=== PATIENT | male | born 2005 | race Caucasian/White ===

== ENCOUNTER 2025-03-28 11:29 | Outpatient (REF) | payer OTHER, SELFPAY ==
--- OUTSIDE RECORDS SUMMARY | 2025-03-28 10:20 | XMS_ITS | Encounter Summary ---
Author Organization [employer] Address [address] [place] [address] Care Team Providers Care Engineering Technical Writer Name Role Phone Unavailable Primary Care Provider Unavailabl e Encounter Details Date Type Department Care Team (Late st Contact Info) Description 03/28/2025 10:20 AM EDT Office Visit [facility] [address] [place] [address] Penile discharge (Primary Dx); Elevated BP without diagnosis of hypertension Social History Tobacco Use Types Packs/Day Years Used Date Smoking Tobacco: Never Assessed Sex and Gender Information Value Date Recorded Sex Assigned at Male 03/27/2025 4:15 PM EDT Legal Sex Male 4:13 PM EDT Gender Identity Male 03/27/2025 4:15 PM EDT Sexual Orientation Straight 03/27/2025 4: 15 PM EDT documented as of this encounter Last Filed Vital Signs Vital Sign Reading Time Taken Comments Blood Pressure 160/100 03/28/2025 10:26 AM EDT Pulse 62 03/28/2025 10:26 AM EDT Temperature 36.6 C (97.8 F) 03/28/2025 10:26 AM EDT Respiratory Rate 16 03/28/2025 10:2 6 AM EDT Oxygen Saturation - - Inhaled Oxygen Concentration - - Weight 74.3 kg (163 lb 12.8 oz) 025 10:26 AM EDT Height - - Body Mass Index - - documented in this encounter Plan of Treatment Upcoming Encounters Date Type Department Care Team (Late Contact Info) Description 04/10/2025 10:00 AM EDT Office Visit [facility] MED[facility] [address] [place] [address] Shannon Montes FNP [address] [place] [address] Scheduled Orders Name Type Priority Associated Diagnoses Orde r Schedule Lipid Panel, Standard Lab Routine Penile discharge Expected: 03/28/2025 (Approximate), Expires: 03/28/2026 HIV-1/2 Antigen and Antibodies, Fourth Generation, with Reflexes Lab Routine Penile discharge Expected: 03/28/2025 (Approximate), Expires: 03/28/2026 Hepatitis B surface antigen, EIA Lab Routine Penile discharge Expected: 03/28/2025 (Approximate), Expires: 03/28/2026 Hepatitis C Antibody with Reflex to HCV, RNA, Quantitative, Real-Time PCR Lab Routine Penile discharge Expected: 03/28/2025, Expires: 03/28/2026 RPR (Monitor) with Reflex to Titer Lab Routine Penile discharge Expected: 03/28/2025, Expires: 03/28/2026 Chlamydia/N. Gonorrhoeae RNA, TMA, Urogenitial Microbiology Routine Penile discharge Ordered: 03/28/2025 Chlamydia/N. Gonorrhoeae, PCR, Urine Lab Routine Penile discharge Ordered: 03/28/2025 documented as of this encounter Procedures Procedure Name Priority Date/Time Associated Diagnosis Comments POCT URINALYSIS DIPSTICK Routine 03/28/2025 11:07 AM EDT Penile discharge documented in this encounter Results * POCT Urinalysis (03/28/2025 11:07 AM EDT) Color, UA Yellow Clarity, UA Cloudy Glucose, UA Negative Bilirubin, UA Negative Ketones, UA Negative Spec Grav, UA 1.020 Blood, UA Negative Negative, None Detected pH, UA 6.0 Protein, UA Negative Urobilinogen, UA 0.2 Leukocytes, UA Trace Negative, Rare, Trace Comment:small Nitrite, UA Negative Negative, None Detected Appearance, UA cloudy QC Media Lot # [id number] Lot# Expiration Date Urine 03/28/2025 11:0 7 AM EDT Preston Newman MD POINT OF CARE TEST ENTER/EDIT O RDERABLES Final Result documented in this encounter Visit Diagnoses Diagnosis Penile discharge- Primary Urethral discharge Elevated BP without diagnosis of hypertension documented in this encounter Administered Medications Inactive Administered Medications - up to 3 most recent administrations Medication Order MAR Action Action Date Dose Rate Site cefTRIAXone (Rocephin) vial 500 mg 500 mg, Intramuscular, Once, On Carlie 03/28/25 at 1115, For 1 dose, Suspected Indication (Select all that apply): Sexually Transmitted Infection, Type of Therapy: EmpiricIndications:Penil e discharge Given 03/28/2025 11:15 AM EDT 500 mg Left Ventrogluteal documented in this encounter
--- OUTSIDE RECORDS SUMMARY | 2025-03-28 12:11 | XMS_ITS | Clinical Summary ---
Author Organization [facility] Address [address] [place] [address] Phone Care Team Providers Care Qualitative Executive Researcher Name Role Phone Unavailable Primary Care Provider Unavailabl e Immunizations Immunization Administration Dates Next Due DTaP 5 08/21/2008, 5,09/17/2004,2003,05/11/2004 H1N1 09/30/2009 Hep B, ped/adol 08/10/2004,05/11/2004,2003 Hib (PRP-T) 03/02/2005, 4,08/10/2004,2003 IPV 08/21/2008, 5,08/10/2004,2003 Influenza Split 07/25/2012,11/27/2010 Influenza, injectable, quadr ivalent, preservative free 07/03/2013 Influenza, injectable, trivalent 010,09/26/2008,08/21/2008,2006 MMR 08/21/2008,03/02/2005 Pneumococcal Conjugate 03/02/2005,2003,08/10/2004,2003 Varicella 08/21/2008,06/22/2005 Family History Relation Name Status Comments Father Alive Father: Diabete s mellitus, Asthma Mother Alive Mother: Migrain es Sister 1 Alive Sister: Alive a nd well, Alive and well Sister 2 Alive Sister: Alive a nd well, Alive and well Social History Tobacco Use Types Packs/Day Years Used Date Smoking Tobacco: Never Assessed Sex and Gender Information Value Date Recorded Sex Assigned at Not on file Legal Sex Male 4:44 PM EDT Gender Identity Not on file Sexual Orientation Not on file Last Filed Vital Signs Vital Sign Reading Time Taken Comments Blood Pressure 98/64 2012 12:00 AM EDT Pulse 92 11/30/2011 12:00 AM EDT Temperature 36.7 C (98 F) 07/03/2013 12:00 AM EDT Respiratory Rate - - Oxygen Saturation - - Inhaled Oxygen Concentration - - Weight 37.2 kg (82 lb) 07/03/2013 12:00 AM EDT Height 128.3 cm (4' 2.5 ) 2012 12:00 AM ED T Body Mass Index - - Plan of Treatment Health Maintenance Due Date Last Done Comments DTaP,Tdap,and Td Vaccines (6 - Tdap) 12/18/2014 08/21/2008, 06/22/2005, 09/17/2004, Additional history exists HPV Vaccines (1 - Male 3-dose series) 12/18/2018 Men B Vaccine (1 of 2 - Standard) 2019 COVID-19 Vaccine ( - season) 2024 Influenza Vaccines (#1) 2025 07/03/20 13, 07/25/2012, 11/27/2010, Additional history exists Hepatitis B Vaccines Completed 08/10/2004, 05/11/2004, 2003 HIB Vaccines Completed 03/02/2005, 08/21, 08/10/2004, Additional history exists Pneumococcal Vaccine Completed 03/02/2005, 09/17/2004, 08/10/2004, Additional history exists IPV Vaccines Completed 08/21/2008, 12/2004, 08/10/2004, Additional history exists MMR Vaccines Completed 08/21/2008, 03/02/2005 Varicella Vaccines Completed 08/21/2008, 06/22/2005 Hepatitis A Vaccines Aged Out No long er eligible based on patient's age to complete this topic Meningococcal Vaccine Aged Out No adwoa yue eligible based on patient's age to complete this topic
--- OUTSIDE RECORDS SUMMARY | 2025-03-28 12:11 | XMS_ITS | Clinical Summary ---
Author Organization [facility] Address [address] [place] [address] Care Team Providers Care Programs Assistant Name Role Phone Mimi Rodriguez MD Primary Care Provider Source Comments PLEASE NOTE, if this patient is a minor, it may be UNLAWFUL to discuss sensitive information that is contained in these records (such as FAMILY PLANNING, MENTAL HEALTH or SUBSTANCE ABUSE) with the minor patient's parent or other person without the patient's specific authorization.[facility] Allergies No known active allergies Medications No known medications Active Problems No known active problems Resolved Problems Problem Noted Date Diagnosed Date Resolved Date Enuresis 10/28/2014 10/07/2018 Immunizations Immunization Administration Dates Next Due DTAP (DAPTACEL),5 PERTUSSIS ANTIGENS 11/2007,06/22/2005,09/17/2004,08/10,05/11/2004 Flu, Preservative Free 07/21/2020,2018,08/08/2018,07/03 HEP B, PED/ADOL ([id number]-MJTK/RECOMBIVAX-PEDS) 08/10/2004,05/11/2004,2003 HPV 9 (Gardasil) 06/15/2019,03/24/2018 Hep A, Ped/adol, 2 Dose 06/15/2019,03/24/2018 Hib (PRP-T) 03/02/2005, 4,08/10/2004,05/11 INFLUENZA, SEASONAL, INJECTABLE 09/30/19 10,09/26/2008,08/21/2008,06/22 IPV (IPOL) 08/21/2008, 5,08/10/2004,05/11 MENINGOCOCCAL MCV4P (MENACTRA) 07/21/2020,2017 MMR (MMR II/Priorix) 08/21/2008,03/02/2005 PNEUMOCOCCAL CONJUGATE PCV 7 03/02/2005, 09/17/2004,08/10/2004,05/11 [facility] Flu Vaccine 07/25/2012, 011 TDAP 03/24/2018 Varicella (Varivax), Live Vaccine 08/21/2008,12/2004 Social History Tobacco Use Types Packs/Day Years Used Date Smoking Tobacco: Never Smokeless Tobacco: Never Alcohol Use Standard Drinks/Week Comments No 0 (1 standard drink = 0.6 oz pur e alcohol) Social Connections Answer Date Recorded Social Connections and Isolation 0 05/13/2019 Financial Resource Strain Answer Date R ecorded Financial Resource Strain 0 2018 Stress Answer Date Recorded Stress 0 05/13/2019 Physical Activity Answer Date Recorded Physical Activity 0 05/13/2019 Food Insecurity Answer Date Recorded Food 0 05/13/2019 Transportation Needs Answer Date Record ed Transportation 0 05/13/2019 Housing Stability Answer Date Recorded Housing 0 05/13/2019 Safety and Environment Answer Date Elias rded Safety 0 05/13/2019 Utilities Answer Date Recorded Utilities 0 05/13/2019 Employment Answer Date Recorded Employment 0 05/13/2019 Sex and Gender Information Value Date Recorded Sex Assigned at Male 03/24/2018 6:49 AM PDT Legal Sex Male 11:05 AM PST Gender Identity Male 03/24/2018 6:49 AM PDT Sexual Orientation Not on file Last Filed Vital Signs Vital Sign Reading Time Taken Comments Blood Pressure 116/70 07/21/2020 11:29 AM EST Pulse 76 07/21/2020 11:29 AM EST Temperature 37 C (98.6 F) 07/21/2020 11:29 AM EST Respiratory Rate 16 07/21/2020 11:29 AM EST Oxygen Saturation - - Inhaled Oxygen Concentration - - Weight 73 kg (161 lb) 07/21/2020 11:29 AM EST Height 163.8 cm (5' 4.5 ) 07/21/2020 11:29 AM ES T Body Mass Index 27.21 07/21/2020 11:29 AM EST Plan of Treatment Not on file Insurance [employer] Care Teams Programs Assistant Relationship Specialty Start Date End Date Mimi Rodriguez MD [address] [place] [phone] PCP - General Pediatrics 10/25/14
[2025-03-28 14:43] LABS: Cholesterol 188 mg/dL (<200); HDL Cholesterol 62 mg/dL (>40); Triglycerides 87 mg/dL (<150)
[2025-03-28 15:48] LABS: CT PCR Urine NOT DETECTED (Not Detect.); NG PCR Urine DETECTED (Not Detect.)
[2025-03-29 08:30] LABS: HBsAGNum1 0.30 S/CO (0.00-0.99); HIV Num 1 0.15 S/CO (0.00-0.99); Hepatitis B Surface Antigen Negative (Negative); ~HepC Num1 0.21 S/CO (0.00-0.79); ~Hepatitis C Antibody Nonreactive (Nonreactive)
== END 2025-03-28 11:30 | disposition home or self-care (01) ==
LOC: HO.HHCL 11:29
PROVIDERS: PCP Pediatrics; Visit Provider Pediatrics
DX: R36.9 Urethral discharge, unspecified (principal)
CPT/HCPCS: 36415; 80061; 86592; 86803; 87340; 87389; 87491; 87591

== ENCOUNTER 2025-06-23 22:56 | Emergency (ER) | payer MEDICAID, SELFPAY ==
--- NOTE | ~2025-06-23 | CT_ITS ---
CLINICAL HISTORY: fall down stairs ?jaw dislocation CT maxillofacial without contrast Comparison: None provided. Findings: Angulated fracture present at the left mandibular ramus, visualized on coronal image number 137 of series 24. There is associated dislocation of the left temporomandibular joint. The right temporomandibular joint appears intact. A fracture is identified through the right mandibular body extending toward the roots of the right mandibular canine and 1st premolar. This fracture appears minimally displaced. There is mild adjacent posttraumatic soft tissue gas. Temporomandibular joints intact. The bilateral globes appear intact. No retrobulbar hematoma. Trace mucosal thickening present at the right anterior ethmoid air cells and bilateral maxillary sinuses. The bilateral mastoid air cells appear clear. Impression: 1. Fractures of the right mandibular body and left mandibular ramus present as described above, with an associated dislocation injury involving the left temporomandibular joint. This document has been electronically signed by: Fernando Romero MD on 06/24/2025 02:07:25
--- NOTE | ~2025-06-23 | CT_ITS ---
CLINICAL HISTORY: fall down stairs CT chest with contrast Comparison: CT - CT CHEST W IV CON - 06/24/25 00:37 EDT Findings: Normal heart,size. No significant pericardial effusion. No thoracic aorta aneurysm. No focal pulmonary consolidation, pneumothorax, or pleural effusion. No acute fractures. Impression: 1. No acute traumatic injury of the chest identified. This document has been electronically signed by: Fernando Romero MD on 06/24/2025 01:55:58
--- NOTE | ~2025-06-23 | CT_ITS ---
CLINICAL HISTORY: fall down stairs CT abdomen and pelvis with contrast Comparison: None provided. Findings: The gallbladder and solid organs are within normal limits. No hydronephrosis or hydroureter. No bowel obstruction, pneumoperitoneum, or pneumatosis. Pelvic contents unremarkable. The bladder is underdistended, limiting its evaluation. Normal appendix. No acute fracture or dislocation injuries are visualized. IMPRESSION: 1. No acute traumatic injury of the abdomen or pelvis identified. This document has been electronically signed by: Fernando Romero MD on 06/24/2025 02:01:57
--- NOTE | ~2025-06-23 | CT_ITS ---
CLINICAL HISTORY: fall down stairs head strike CT head without contrast Comparison: None provided. Findings: No intracranial mass, midline shift, hydrocephalus, or acute hemorrhage. Trace mucosal thickening identified within the right anterior ethmoid air cells. The bilateral mastoid air cells appear clear. No acute skull fracture. Left mandibular ramus fracture present. Impression: 1. No acute intracranial abnormality. No acute intracranial hemorrhage. This document has been electronically signed by: Fernando Romero MD on 06/24/2025 02:10:50
--- NOTE | ~2025-06-23 | CT_ITS ---
CLINICAL HISTORY: fall down stairs CT cervical spine without contrast Comparison: None provided. Findings: Angulated fracture of the left mandibular ramus present. There is straightening of the normal cervical lordosis. No cervical spondylolisthesis. No acute fractures or dislocations are identified at the cervical spine. No significant degenerative endplate changes at the cervical spine. Impression: 1. Straightening of the normal cervical lordosis. This finding is nonspecific and may be positional and/or related to muscle spasm. No acute fracture or dislocation injury identified at the cervical spine. This document has been electronically signed by: Fernando Romero MD on 06/24/2025 02:09:08
[2025-06-23 23:09] VITALS: BP 157/93; PULSE 87; RESP 18; TEMP 36.6; O2SAT 97; BMI 27.5
--- NOTE | 2025-06-23 23:30 | ED_ITS ---
HPI - Trauma General Chief Complaint: Trauma Stated Complaint: Fell downstairs, teeth injury Time Seen by Provider: 06/23/25 23:15 Source: patient Mode of arrival: ambulatory Limitations: no limitations History of Present Illness ED Provider: CATALINA LUCIANO PA-C HPI narrative: 19-year-old male presents to the ED today s/p fall down a flight of wooden stairs [employer] in ED tonight. Admits he is intoxicated, lost his balance while descending the stairs and fell down approximately 15 stairs total, head first with impact to chin/ jaw. Unclear if he lost consciousness. Denies anticoagulation. At present, reports jaw pain primarily to left side. Noted to have multiple chipped teeth. Unaware if he swallowed them. Admits to driving himself to the ED today. Denies headache, neck pain, dizziness, vision changes. History somewhat limited due to patient's acute intoxication. Related Data Allergies Allergy/AdvReac Type Severity Reaction Status Date / Time No Known Allergies Allergy Unverified 06/23/25 23:25 Review of Systems 2 Review of Systems: Yes all other systems are reviewed and are negative PMFSH Past Medical History Attestation statement: The following information was validated with the patient. Source: old records reviewed and nursing notes reviewed Social History Social History Alcohol intake: current Smoked in Last 30 Days: No Use of substances other than those prescribed or required for medical reasons: Yes Substance Use Type: Marijuana Advance Directives: No Advance Directives Information Provided: No Physical Exam 2 Vital Signs: Vital Signs: Last Vital Signs Temp 97.9 F 06/23/25 23:09 Pulse 80 06/24/25 01:23 Resp 20 06/24/25 01:23 BP 138/80 06/24/25 01:23 Pulse Ox 98 06/24/25 01:23 O2 Del Method Room Air 06/24/25 01:23 BMI result Body Mass Index 27.5 hypertensive, vitals are otherwise wnl General: Well appearing, in no acute distress. Skin: Warm, dry, intact. No rashes or lesions. Head: swelling noted to mandible, left greater than right, difficulty opening mouth, palpable step off at right tmj. chipped upper frontal teeth. no palpable skull fracture, step off or hematoma. EENT: no septal hematoma. Neck: no midline c spine tenderness, FROM intact Cardiac: no overlying ecchymosis or abrasions, symmetric rise and fall of chest, no flail chest, RRR Lungs: Normal respiratory effort without accessory muscle use. CTA bilaterally Abdomen: no overlying ecchymosis or abrasion. Soft, non-tender, non-distended. No rebound tenderness or guarding. Positive BS x4. Back: No midline spinous or paraspinal tenderness. No step off deformity. Ext: abrasions to bilateral anterior knees, FROM intact Neuro: AOx3. Normal speech. Strength 5/5 intact throughout. No saddle anesthesia. Sensation intact to light touch. NV intact distally Psych: Appropriate mood and affect. Responds appropriately to questions. Course Course Course Narrative: 0039 -- Concern for jaw dislocation. Given patient is acutely intoxicated and history is limited, will trauma scan him. screening labs/ethanol ordered. morphine ordered for pain control. > my attending dr. radford at bedside, agreeable with plan 214 -- CBC without leukocytosis or left shift. No anemia. H&H stable. > CT facial bones showing angulated fracture of the left mandibular ramus, associated dislocation of the left TMJ. Right TMJ intact. There is also a fracture through the right mandibular body extending towards the roots of the right mandibular canine and 1st premolar, minimally displaced. Mild adjacent posttraumatic soft tissue gas. the rest of his trauma scans are unremarkable. > call out to [facility] trauma 6 -- spoke with [facility] trauma dr. porter - accepted ED to ED transfer for trauma consult. discussed w/ patient and his mother who are at bedside, agreeable with transfer. stable at this time. Medications Administered Discontinued Medications Generic Name Dose Route Start Last Admin Trade Name Freq PRN Reason Stop Dose Admin Hydromorphone HCl 1 mg 06/24/25 01:06 06/24/25 01:16 Hydromorphone Hcl 1 Mg/Ml Syringe IVPUSH 06/24/25 01:07 1 mg ONCE ONE Administration Protocol Iohexol 85 ml 06/24/25 00:56 06/24/25 01:11 Iohexol 350 Mg/Ml 100 Ml Infus..Btl IV 06/24/25 00:57 85 ml ONCE ONE Administration Lidocaine HCl 10 ml 06/23/25 23:24 06/24/25 01:35 Lidocaine Hcl 1 % Mpf 5 Ml Vial INFILTRATI 10/05/25 23:25 Not Given ONCE ONE Morphine Sulfate 4 mg 06/23/25 23:22 06/23/25 23:33 Morphine Sulfate 4 Mg/Ml Cartridge IVPUSH 06/23/25 23:23 4 mg ONCE ONE Administration Protocol Medical Decision Making Differential Diagnosis Differential Diagnoses: The differential diagnosis associated with the presentation includes As above Admission/Observation Consideration of admission/observation: Escalation of care including admission/observation considered transferred to acute care hospital for management of traumatic facial fractures Consult Healthcare Provider Management of the patient was discussed with: Instructor Traffic [employer] [facility] trauma - dr. porter Lab Data [facility] Lab Attestation statement: I reviewed the patient's lab results. As above 06/23/25 23:30 06/23/25 23:30 Labs: Lab Results 06/23/25 06/24/25 Range/Units 23:30 00:36 WBC 8.1 (4.8-10.8) X10*3/uL RBC 5.31 (4.60-5.80) X10*6/uL Hgb 16.4 (14.0-18.0) g/dl Hct 46.1 (42.0-52.0) % MCV 86.8 (80.0-98.0) fL MCH 30.9 (27.0-33.0) pg MCHC 35.6 (31.0-36.0) g/dl RDW 12.2 (11.0-16.0) % Plt Count 282 (160-400) X10*3/uL MPV 10.2 (9.4-12.4) fL Immature Gran % (Auto) 0.2 (0.0-0.4) % Neut % (Auto) 51.9 (45-73) % Lymph % (Auto) 43.6 H (20-40) % [place] % (Auto) 3.3 (2-11) % Eos % (Auto) 0.6 (0-4) % Baso % (Auto) 0.4 (0-2) % Lymph # (Auto) 3.5 (1.2-4.9) X10*3/uL [place] # (Auto) 0.3 (0.1-1.2) X10*3/uL Eos # (Auto) 0.1 (0.0-0.4) X10*3/uL Baso # (Auto) 0.0 (0.0-0.2) X10*3/uL Abs Immat Gran (auto) 0.02 (0.00-0.03) X10*3/uL Absolute Neuts (auto) 4.2 (2.0-8.3) x10*3/uL Absolute Nucleated RBC 0.000 (0.0-0.012) X10*3/uL Nucleated RBC % (auto) 0.0 (0.0-0.2) /100WBC Sodium 146 H (135-145) mmol/L Potassium 3.6 (3.3-5.1) mmol/L Chloride 107 (96-108) mmol/L Carbon Dioxide 29 (22-29) mmol/L Anion Gap 14 (12-20) BUN 8 L (9-16) mg/dL Creatinine 1.02 (0.5-1.4) mg/dL Estim Creat Clear Calc 104.6 Estimated GFR > 60 Random Glucose 111 (60-115) mg/dL Calcium 9.6 (8.4-10.2) mg/dL Magnesium 2.2 (1.6-2.6) mg/dL Total Bilirubin 0.3 (0.0-1.0) mg/dL AST 30 (5-37) U/L ALT 24 (0-40) U/L Alkaline Phosphatase 67 (39-117) U/L Total Protein 8.4 H (6.5-8.0) g/dL Albumin 5.4 H (3.5-5.0) g/dL Urine Color Yellow Urine Appearance Clear Urine pH 6.0 (5.0-9.0) Ur Specific [place] 1.010 (1.005-1.025) Urine Protein Negative (Neg-Trace) mg/dL Urine Glucose (UA) Negative (Negative) mg/dL Urine Ketones Negative (Negative) mg/dL Urine Blood Trace H (Negative) Urine Nitrite Negative (Negative) Ur Leukocyte Esterase Negative (Negative) Urine RBC 0-2 (0-2) /HPF Urine WBC 0-5 (0-5) /HPF Ur Squamous Epith Cells 0-2 (0-2) /HPF Urine Bacteria None Seen (None Seen) Hyaline Casts 0-2 (0-2) /LPF Urine Opiates Screen POSITIVE H (Not Detect) Ur Buprenorphine Scrn Not Detected (Not Detect) ng/mL Ur Oxycodone Screen Not Detected (Not Detect) ng/mL Urine Methadone Screen Not Detected (Not Detect) ng/mL Urine Fentanyl Screen Not Detected (Not Detect) Ur Barbiturates Screen Not Detected (Not Detect) Ur Phencyclidine Scrn Not Detected (Not Detect) Ur Amphetamines Screen Not Detected (Not Detect) U Benzodiazepines Scrn Not Detected (Not Detect) Urine Cocaine Screen Not Detected (Not Detect) U Marijuana (THC) Screen POSITIVE H (Not Detect) Ethyl Alcohol 220 mg/dL Independent Interpretation I performed an independent interpretation of an: CT Scan Interpretation: CT head/brain without bleed or skull fracture CT cervical spine without fracture CT facial bones showing bilateral mandibular fractures CT chest without intrathoracic bleed CT abdomen/pelvis without intra-abdominal bleed Radiology Impression Discussion of test interpretation with radiology: I have reviewed the radiologist's reading. Radiologist Impression: Date of Service: 06/24/25 Procedure(s): CT head/brain wo IV con Accession Number(s): [id number] cc: [facility]; Catalina Luciano~ Report Number: [id number]: Total DLP = 1395.55 mGy-cm Reason for Exam: fall down stairs head strike CLINICAL HISTORY: fall down stairs head strike CT head without contrast Comparison: None provided. Findings: No intracranial mass, midline shift, hydrocephalus, or acute hemorrhage. Trace mucosal thickening identified within the right anterior ethmoid air cells. The bilateral mastoid air cells appear clear. No acute skull fracture. Left mandibular ramus fracture present. Impression: 1. No acute intracranial abnormality. No acute intracranial hemorrhage. This document has been electronically signed by: Fernando Romero MD on 06/24/2025 02:10:50 Date of Service: 06/24/25 Procedure(s): CT cervical spine wo IV con Accession Number(s): [id number] cc: [facility]; Catalina Luciano~ Report Number: [id number]: Total DLP = 353.44 mGy-cm Reason for Exam: fall down stairs CLINICAL HISTORY: fall down stairs CT cervical spine without contrast Comparison: None provided. Findings: Angulated fracture of the left mandibular ramus present. There is straightening of the normal cervical lordosis. No cervical spondylolisthesis. No acute fractures or dislocations are identified at the cervical spine. No significant degenerative endplate changes at the cervical spine. Impression: 1. Straightening of the normal cervical lordosis. This finding is nonspecific and may be positional and/or related to muscle spasm. No acute fracture or dislocation injury identified at the cervical spine. This document has been electronically signed by: Fernando Romero MD on 06/24/2025 02:09:08 Procedure(s): CT facial bones wo IV con Accession Number(s): [id number] cc: [facility]; Catalina Luciano~ Report Number: [id number]: Total DLP = 571.66 mGy-cm Reason for Exam: fall down stairs ?jaw dislocation CLINICAL HISTORY: fall down stairs ?jaw dislocation CT maxillofacial without contrast Comparison: None provided. Findings: Angulated fracture present at the left mandibular ramus, visualized on coronal image number 137 of series 24. There is associated dislocation of the left temporomandibular joint. The right temporomandibular joint appears intact. A fracture is identified through the right mandibular body extending toward the roots of the right mandibular canine and 1st premolar. This fracture appears minimally displaced. There is mild adjacent posttraumatic soft tissue gas. Temporomandibular joints intact. The bilateral globes appear intact. No retrobulbar hematoma. Trace mucosal thickening present at the right anterior ethmoid air cells and bilateral maxillary sinuses. The bilateral mastoid air cells appear clear. Impression: 1. Fractures of the right mandibular body and left mandibular ramus present as described above, with an associated dislocation injury involving the left temporomandibular joint. This document has been electronically signed by: Fernando Romero MD on 06/24/2025 02:07:25 Procedure(s): CT abdomen pelvis w IV con Accession Number(s): [id number] cc: [facility]; Catalina Luciano~ Report Number: [id number]: Total DLP = 731.49 mGy-cm Reason for Exam: fall down stairs CLINICAL HISTORY: fall down stairs CT abdomen and pelvis with contrast Comparison: None provided. Findings: The gallbladder and solid organs are within normal limits. No hydronephrosis or hydroureter. No bowel obstruction, pneumoperitoneum, or pneumatosis. Pelvic contents unremarkable. The bladder is underdistended, limiting its evaluation. Normal appendix. No acute fracture or dislocation injuries are visualized. IMPRESSION: 1. No acute traumatic injury of the abdomen or pelvis identified. This document has been electronically signed by: Fernando Romero MD on 06/24/2025 02:01:57 Procedure(s): CT chest w IV con Accession Number(s): [id number] cc: [facility]; Catalina Luciano~ Report Number: [id number]: Total DLP = 389.77 mGy-cm Reason for Exam: fall down stairs CLINICAL HISTORY: fall down stairs CT chest with contrast Comparison: CT - CT CHEST W IV CON - 06/24/25 00:37 EDT Findings: Normal heart,size. No significant pericardial effusion. No thoracic aorta aneurysm. No focal pulmonary consolidation, pneumothorax, or pleural effusion. No acute fractures. Impression: 1. No acute traumatic injury of the chest identified. This document has been electronically signed by: Fernando Romero MD on 06/24/2025 01:55:58 Independent Historian Clinical information obtained from an independent historian. History obtained from or confirmed by: Parent Prescription Management I considered prescription management with: Pain Medication Social Determinants Patient?s care significantly limited by Social Determinants of Health including: Other Social Determinant of Health Attestation Attending Attestation: I personally evaluated this patient with the HERBIE and performed a substantive portion of the visit including all aspects of the medical decision making. ?Reviewed and agree with documented PA assessment and plan. Patient will be transferred to [facility] for trauma evaluation after a fall down stairs with multiple facial fractures, accepted by Dr. Porter.? Patient remains hemodynamically stable, resting and comfortable at this time. Critical Care Time Critical Care Time Critical Care Time: Yes Total Critical Care Time: 35 Attestation: Critical care time in the amount of 35 minutes has been provided to the patient in terms of direct patient care, frequent reevaluation, consultation with trauma, review and interpretation of medical data and results, and management of potentially life-threatening conditions. This is all outside of any medical procedures. Discharge Plan Discharge Clinical Impression: Fracture of right ramus of mandible, Fracture of left ramus of mandible, Dislocation of left temporomandibular joint, Fall (on) (from) other stairs and steps, initial encounter, Chin laceration Patient Disposition: [facility] Transfer Details: [facility] ED to ED - trauma dr. porter Print Language: Lithuanian
[2025-06-23 23:35] LABS: Hematocrit 46.1 % (42.0-52.0); Hemoglobin 16.4 g/dl (14.0-18.0); Imm Gran Abs Auto 0.02 X10*3/uL (0.00-0.03); Imm Gran Pct Auto 0.2 % (0.0-0.4); Lymphocytes Absolute Auto 3.5 X10*3/uL (1.2-4.9); MANUAL DIFF FLAG NO; Mean Corpuscular HGB Conc 35.6 g/dl (31.0-36.0); Mean Corpuscular Hemoglobin 30.9 pg (27.0-33.0); Mean Corpuscular Volume 86.8 fL (80.0-98.0); NRBC Abs Auto 0.000 X10*3/uL (0.0-0.012); NRBC Pct Auto 0.0 /100WBC (0.0-0.2); Platelet Count 282 X10*3/uL (160-400); Red Blood Count 5.31 X10*6/uL (4.60-5.80); White Blood Count 8.1 X10*3/uL (4.8-10.8)
[2025-06-23 23:51] LABS: Alanine Aminotransferase 24 U/L (0-40); Albumin Level 5.4 g/dL (3.5-5.0); Alkaline Phosphatase 67 U/L (39-117); Anion Gap 14 (12-20); Aspartate Amino Transferase 30 U/L (5-37); Blood Urea Nitrogen 8 mg/dL (9-16); Calcium 9.6 mg/dL (8.4-10.2); Carbon Dioxide 29 mmol/L (22-29); Chloride 107 mmol/L (96-108); Creatinine Clr Calc Pharmacy 104.6; Estimated Glomerular Filt Rate > 60; Magnesium 2.2 mg/dL (1.6-2.6); Potassium 3.6 mmol/L (3.3-5.1); Sodium 146 mmol/L (135-145); Total Protein 8.4 g/dL (6.5-8.0)
--- OUTSIDE RECORDS SUMMARY | 2025-06-24 00:40 | XMS_ITS | Encounter Summary ---
Author Organization [facility] Address [address] [place] [address] Phone Care Team Providers Care Corporate Travel Expert Name Role Phone Gabrielle Ortega MD Primary Care Provider Unavailabl e Encounter Details Date Type Department Care Team (Late st Contact Info) Description 05/05/2017 Conversion Encounter [facility] - [address] [address] Social History Tobacco Use Types Packs/Day Years Used Date Smoking Tobacco: Never Assessed Sex and Gender Information Value Date Recorded Sex Assigned at Not on file Legal Sex Male 4:44 PM EDT Gender Identity Not on file Sexual Orientation Not on file documented as of this encounter Plan of Treatment Not on file documented as of this encounter Visit Diagnoses Not on filedocumented in this encounter Care Teams Corporate Travel Expert Relationship Specialty Start Date End Date Gabrielle Ortega MD PCP - General 04/29/17 11/22/23 documented as of this encounter
--- OUTSIDE RECORDS SUMMARY | 2025-06-24 00:40 | XMS_ITS | Encounter Summary ---
Author Organization [facility] Address [address] [place] [address] Phone Care Team Providers Care Dry Cell Battery Assembler Name Role Phone Gabrielle Ortega MD Primary Care Provider Unavailabl e Encounter Details Date Type Department Care Team (Late st Contact Info) Description 11/09/2013 Documentation [facility] [address] [place] [address] Family Medicine, Physician [address] [place], [place] [id number] Social History Tobacco Use Types Packs/Day Years [...] on filedocumented in this encounter Care Teams Dry Cell Battery Assembler Relationship Specialty Start Date End Date Gabrielle Ortega MD PCP - General 04/29/17 11/22/23 documented as of this encounter
--- OUTSIDE RECORDS SUMMARY | 2025-06-24 00:40 | XMS_ITS | Encounter Summary ---
Author Organization [employer] Address [address] [place] [address] Care Team Providers Care Disability Aide Name Role Phone Unavailable Primary Care Provider Unavailabl e Encounter Details Date Type Department Care Team (Late st Contact Info) Description 06/23/2025 Orders Only GENERIC EXTERNAL DATA DEPARTMENT Provider, Generic External Data Social History Tobacco Use Types Packs/Day Years Used Date Smoking Tobacco: Never Smokeless Tobacco: Never Sex and Gender Information Value Date Recorded Sex Assigned at Male 03/27/2025 4:15 PM EDT Legal Sex Male 4:13 PM EDT Gender Identity Male 03/27/2025 4:15 PM EDT Sexual Orientation Straight 03/27/2025 4: 15 PM EDT documented as of this encounter Plan of Treatment Upcoming Encounters Date Type Department Care Team (Late st Contact Info) Description 07/16/2025 2:00 PM EDT Office Visit [facility] [address] [place] [address] Monica Meyers NP [address] [place] [address] documented as of this encounter Procedures Procedure Name Priority Date/Time Associated Diagnosis Comments ETHANOL Routine 06/23/2025 11:30 PM EDT MAGNESIUM Routine 06/23/2025 11:30 PM EDT COMPREHENSIVE METABOLIC PANEL Routine 06/23/2025 11:30 PM EDT documented in this encounter Results * Ethanol (06/23/2025 11:30 PM EDT) ETHANOL (MG/DL) IN SER/PLAS 220 mg/dL [facility] Comment:Serum/plasma ethanol results are to be used formedical/treatment purposes only. 06/23/2025 11:3 0 PM EDT 06/23/2025 11:34 PM EDT Generic External Data Provider LAB BLOOD ORDERAB LES Final Result Performing Organization Address [facility]/ZIP Co de Phone Number [facility] [address] [place] [phone] * Magnesium (06/23/2025 11:30 PM EDT) Magnesium 2.2 1.6 - 2.6 mg/dL [facility] 06/23/2025 11:3 0 PM EDT 06/23/2025 11:34 PM EDT Generic External Data Provider LAB BLOOD ORDERAB LES Final Result Performing Organization Address [facility] de Phone Number [facility] [address] [place] [phone] * (ABNORMAL) Comprehensive Metabolic Panel (06/23/2025 11:30 PM EDT) Sodium 146(H) 135 - 145 mmol/L [facility] Potassium 3.6 3.3 - 5.1 mmol/L [facility] Chloride 107 96 - 108 mmol/L [facility] Carbon Dioxide 29 22 - 29 mmol/L [facility] Anion Gap 14 12 - 20 [facility] Urea Nitrogen (BUN) 8(L) 9 - 16 mg/dL [facility] Creatinine, Serum 1.02 0.5 - 1.4 mg/dL [facility] Creatinine Clr Calc Pharmacy 104.6 [facility] Comment:eGFR (calculated fro m the MDRD study equation) and eCrCl(calculated from the Cockcroft-Gault equation) are based ondifferent parameters and may not yield comparable results.If eCrCl result is absurd, please check patient'sheight/weight. Estimated Glomerular Filt Rate >60 [facility] Comment:Chronic Kidney Disea se: Estimated GFR < 60 mL/min/1.95o9Alsanr Kidney Disease: Estimated GFR < 15 mL/min/1.73m2 Glucose 111 60 - 115 mg/dL [facility] Calcium 9.6 8.4 - 10.2 mg/dL [facility] Bilirubin, Total 0.3 0.0 - 1.0 mg/dL [facility] Aspartate Amino Transferase 30 5 - 37 U/L [facility] Alanine Aminotransferase 24 0 - 40 U/L [facility] Total Protein 8.4(H) 6.5 - 8.0 g/dL [facility] Albumin Level 5.4(H) 3.5 - 5.0 g/dL [facility] Alkaline Phosphatase 67 39 - 117 U/L [facility] 06/23/2025 11:3 0 PM EDT 06/23/2025 11:34 PM EDT us Generic External Data Provider LAB BLOOD ORDERAB LES Final Result [facility] [address] [place], [place] [phone] documented in this encounter Visit Diagnoses Not on filedocumented in this encounter
--- OUTSIDE RECORDS SUMMARY | 2025-06-24 00:40 | XMS_ITS | Clinical Summary ---
Author Organization [facility] Address [address] [place] [address] Phone Care Team Providers Care Fishing Vessel Captain Name Role Phone Unavailable Primary Care Provider [...] Vaccine (1 of 2 - Standard) 2019 Influenza Vaccines (#1) 2025 07/03/20 13, 07/25/2012, 11/27/2010, Additional history exists COVID-19 Vaccine ( - season) 2025 Hepatitis B Vaccines Completed 08/10/2004, 05/11/2004, 2003 [...]
--- OUTSIDE RECORDS SUMMARY | 2025-06-24 00:41 | XMS_ITS | Encounter Summary ---
Author Organization [facility] Address [address] [place] [address] Phone Care Team Providers Care Oil House Attendant Name Role Phone Gabrielle Ortega MD Primary Care Provider Unavailabl e Encounter Details Date Type Department Care Team (Late st Contact Info) Description 11/09/2013 Documentation [facility] [place] Family Medicine [address] [place] [address] Family Medicine, Physician [address] [place], [place] [phone] Social History Tobacco Use Types Packs/Day Years [...] on filedocumented in this encounter Care Teams Oil House Attendant Relationship Specialty Start Date End Date Gabrielle Ortega MD PCP - General 04/29/17 11/22/23 documented as of this encounter
--- OUTSIDE RECORDS SUMMARY | 2025-06-24 00:41 | XMS_ITS | Encounter Summary ---
Author Organization [facility] Address [address] [place] [address] Phone Care Team Providers Care Gas Engineer Name Role Phone Gabrielle Ortega MD Primary Care Provider Unavailabl e Encounter Details Date Type Department Care Team (Late st Contact Info) Description 11/09/2013 Documentation [facility] [place] [address] [place] [address] Family Medicine, Physician [address] [place], [place] [phone] Social History Tobacco Use Types Packs/Day Years [...] on filedocumented in this encounter Care Teams Gas Engineer Relationship Specialty Start Date End Date Gabrielle Ortega MD PCP - General 04/29/17 11/22/23 documented as of this encounter
--- OUTSIDE RECORDS SUMMARY | 2025-06-24 00:41 | XMS_ITS | Encounter Summary ---
Author Organization [facility] Address [address] [place] [address] Phone Care Team Providers Care Private Banker Name Role Phone Gabrielle Ortega MD Primary Care Provider Unavailabl e Encounter Details Date Type Department Care Team (Late st Contact Info) Description 07/04/2013 Documentation [facility] [place] Family Medicine [address] [place] [address] Family Medicine, Physician [address] [place], [place] [phone] Social History Tobacco Use Types Packs/Day Years [...] on filedocumented in this encounter Care Teams Private Banker Relationship Specialty Start Date End Date Gabrielle Ortega MD PCP - General 04/29/17 11/22/23 documented as of this encounter
--- OUTSIDE RECORDS SUMMARY | 2025-06-24 00:42 | XMS_ITS | Encounter Summary ---
Author Organization [facility] Address [address] [place] [address] Phone Care Team Providers Care Ui Application Developer Name Role Phone Gabrielle Ortega MD Primary Care Provider Unavailabl e Encounter Details Date Type Department Care Team (Late st Contact Info) Description 01/07/2012 Documentation [facility] [place] [address] [place] [address] Family Medicine, Physician [address] [place], [place] [phone] Social History Tobacco Use Types Packs/Day Years [...] on filedocumented in this encounter Care Teams Ui Application Developer Relationship Specialty Start Date End Date Gabrielle Ortega MD PCP - General 04/29/17 11/22/23 documented as of this encounter
--- OUTSIDE RECORDS SUMMARY | 2025-06-24 00:42 | XMS_ITS | Clinical Summary ---
Author Organization [facility] Address [address] [place] [address] Care Team Providers Care Gray Mixing Operator Name Role Phone Mimi Rodriguez MD Primary [...] Flu, Preservative Free 07/21/2020,2018,08/08/2018,07/03 HEP B, PED/ADOL ([id number]/RECOMBIVAX-PEDS) 08/10/2004,05/11/2004,2003 HPV 9 (Gardasil) 06/15/2019,03/24/2018 Hep A, Ped/adol, 2 Dose 06/15/2019,03/24/2018 Hib (PRP-T) 03/02/2005, 4,08/10/2004,05/11 INFLUENZA, SEASONAL, INJECTABLE 09/30/19 10,09/26/2008,08/21/2008,06/22 IPV (IPOL) 08/21/2008, 5,08/10/2004,05/11 MENINGOCOCCAL MCV4P (MENACTRA) 07/21/2020,2017 MMR (MMR II/Priorix) 08/21/2008,03/02/2005 PNEUMOCOCCAL CONJUGATE PCV 7 03/02/2005, 09/17/2004,08/10/2004,05/11 [facility] State Funded Flu Vaccine 07/25/2012, 011 [...] on file Insurance [employer] K[employer]HR[employer] Care Teams Gray Mixing Operator Relationship Specialty Start Date End Date Mimi Rodriguez MD [address] [place] [phone] PCP - General Pediatrics 10/25/14
--- OUTSIDE RECORDS SUMMARY | 2025-06-24 00:42 | XMS_ITS | Encounter Summary ---
Author Organization [facility] Address [address] [place] [address] Phone Care Team Providers Care Tube Repairer Name Role Phone Gabrielle Ortega MD Primary Care Provider Unavailabl e Encounter Details Date Type Department Care Team (Late st Contact Info) Description 12/01/2011 Documentation [facility] [place] [address] [place] [address] Family Medicine, Physician [address] [place], [place] [phone] Social History Tobacco Use Types Packs/Day Years [...] on filedocumented in this encounter Care Teams Tube Repairer Relationship Specialty Start Date End Date Gabrielle Ortega MD PCP - General 04/29/17 11/22/23 documented as of this encounter
--- OUTSIDE RECORDS SUMMARY | 2025-06-24 00:42 | XMS_ITS | Encounter Summary ---
Author Organization [facility] Address [address] [place] [address] Phone Care Team Providers Care Office Worker Name Role Phone Gabrielle Ortega MD Primary Care Provider Unavailabl e Encounter Details Date Type Department Care Team (Late st Contact Info) Description 12/01/2011 Documentation [facility] [place] Family Medicine [address] [place] [address] Family Medicine, Physician [address] [place], [place] [phone] Social History Tobacco Use Types Packs/Day Years [...] on filedocumented in this encounter Care Teams Office Worker Relationship Specialty Start Date End Date Gabrielle Ortega MD PCP - General 04/29/17 11/22/23 documented as of this encounter
--- OUTSIDE RECORDS SUMMARY | 2025-06-24 00:42 | XMS_ITS | Encounter Summary ---
Author Organization [facility] Address [address] [place] [address] Phone Care Team Providers Care Spring Upholsterer Name Role Phone Gabrielle Ortega MD Primary Care Provider Unavailabl e Encounter Details Date Type Department Care Team (Late st Contact Info) Description 03/21/2012 Documentation [facility] [place] [address] [place] [address] Family Medicine, Physician [address] [place], [place] [phone] Social History Tobacco Use Types Packs/Day Years [...] on filedocumented in this encounter Care Teams Spring Upholsterer Relationship Specialty Start Date End Date Gabrielle Ortega MD PCP - General 04/29/17 11/22/23 documented as of this encounter
--- OUTSIDE RECORDS SUMMARY | 2025-06-24 00:42 | XMS_ITS | Encounter Summary ---
Author Organization [facility] Address [address] [place] [address] Phone Care Team Providers Care Forest Fire Equipment Operator Name Role Phone Gabrielle Ortega MD Primary Care Provider Unavailabl e Encounter Details Date Type Department Care Team (Late st Contact Info) Description 07/26/2012 Documentation [facility] [place] Family Medicine [address] [place] [address] Family Medicine, Physician [address] [place], [place] [phone] Social History Tobacco Use Types Packs/Day Years [...] on filedocumented in this encounter Care Teams Forest Fire Equipment Operator Relationship Specialty Start Date End Date Gabrielle Ortega MD PCP - General 04/29/17 11/22/23 documented as of this encounter
--- OUTSIDE RECORDS SUMMARY | 2025-06-24 00:42 | XMS_ITS | Clinical Summary ---
Author Organization [employer] Address [address] [place] [address] Care Team Providers Care Coater Name Role Phone Unavailable Primary Care Provider Unavailabl e Allergies No known active allergies Medications Blood Pressure kitIndications:E levated BP without diagnosis of hypertension Check BP daily until seen in follow up. 1 kit 03/28/20 25 Active COVID-19 At Home Antigen Test kitIndications:C OVID-19 As directed. 2 kit 2 06/04/20 25 Active ibuprofen 600 MG tabletIndication s:COVID-19 1 tab q 6 hours prn fever or pain. 30 tablet 1 06/04/20 25 Active sodium chloride (Holt Nasal [place]) 0.65 % nasal sprayIndications :COVID-19 1 spray each nostril q 2 hours prn congestion 30 mL 2 06/04/20 25 Active doxycycline (Vibramycin) 100 MG capsuleIndicatio ns:Penile discharge 1 capsule BID x 7 days. Take with at least 8 ounces (large glass) of water, do not lie down for 30 minutes after 14 capsule 03/28/20 25 025 Discontinued Active Problems No known active problems Encounters Date Type Department Care Team Description 06/23/2025 Orders Only GENERIC EXTERNAL DATA DEPARTMENT Provider, Generic External Data 06/06/2025 8:40 AM EDT Office Visit [facility] [address], [place] [phone] Preston Newman MD COVID-19 (Primary Dx) 06/06/2025 Travel 06/04/2025 8:40 AM EDT Office Visit [facility] [address], [place] [phone] Preston Newman MD COVID-19 06/04/2025 Travel 04/18/2025 Telephone [facility] [address] [place] [address] Elie Mora MD 04/09/2025 Telephone [facility] [address] [place] [address] Shannon Montes FNP Chart Prep 04/09/2025 Population Health Risk Score [facility] () Department [address] [place] [phone] Provider, Population Health Generic 04/02/2025 Results Follow-Up [facility] [address] [place] [address] Preston Newman MD POCT Urinalysis, Lipid Panel, Standard, HIV-1/2 Antigen and Antibodies, Fourth Generation, with Reflexes, Additional followed-up results: 4 03/29/2025 Telephone [facility] [address] [place] [address] Kaitlynn Amaya MD 03/28/2025 10:20 AM EDT Office Visit [facility] [address] [place] [address] Preston Newman MD Penile discharge (Primary Dx); Elevated BP without diagnosis of hypertension; Substance use disorder; Pearly penile papules; Penile lesion 03/28/2025 Travel from Last 3 Months Social History Tobacco Use Types Packs/Day Years Used Date Smoking Tobacco: Never Smokeless Tobacco: Never Tobacco Cessation:Counseling Given: Not Answered Sex and Gender Information Value Date Recorded Sex Assigned at Male 03/27/2025 4:15 PM EDT Legal Sex Male 4:13 PM EDT Gender Identity Male 03/27/2025 4:15 PM EDT Sexual Orientation Straight 03/27/2025 4: 15 PM EDT Last Filed Vital Signs Vital Sign Reading Time Taken Comments Blood Pressure 136/84 06/06/2025 8:41 AM EDT Pulse 70 06/06/2025 8:41 AM EDT Temperature 36.8 C (98.2 F) 06/06/2025 8:41 AM EDT Respiratory Rate 19 06/06/2025 8:41 AM EDT Oxygen Saturation 99% 06/06/2025 8:41 AM EDT Inhaled Oxygen Concentration - - Weight 74.2 kg (163 lb 9.6 oz) 06/06/2025 8:41 A M EDT Height 165.1 cm (5' 5 ) 06/06/2025 8:41 AM EDT Body Mass Index 27.22 06/06/2025 8:41 AM EDT Plan of Treatment Upcoming Encounters Date Type Department Care Team (Late st Contact Info) Description 07/16/2025 2:00 PM EDT Office Visit [facility] [address], [place] [phone] Monica Meyers NP [address] [place], [place] [phone] Health Maintenance Due Date Last Done Comments Chlamydia and Gonorrhea Screening 2003 Depression Screening 2003 SDOH Screening 2003 Alcohol/Substance Use Screening 2015 Family Planning (PISQ) 12/18/2018 Meningococcal B Vaccine (1 of 2 - Standard) 2019 COVID-19 Vaccine (1 - season) 2025 Influenza Vaccine (#1) 2025 , 06/15/2019, 08/08/2018, Additional history exists Disability Screening 06/04/2026 06/04/2025 Tobacco Screening 06/06/2026 06/06/2025 DTaP/Tdap/Td Vaccines (7 - Td or Tdap) 03/24/2028 03/24/2018, 08/21/2008, 06/22/2005, Additional history exists Zoster Vaccines (1 of 2) 12/18/2053 RSV Patients and Patients Aged 60 years or older (1 - 1-dose 75+ series) 12/18/2078 Hepatitis B Vaccines Completed 08/10/2004, 05/11/2004, 2003 HIB Vaccines Completed 03/02/2005, 08/21, 08/10/2004, Additional history exists Pneumococcal Vaccine: Pediatrics (0 to 5 Years) and At-Risk Patients (6 to 49) Years Aged Out 03/02/2005, 09/17/2004, 08/10/2004, Additional history exists No longer eligible based on patient's age to complete this topic IPV Vaccines Completed 08/21/2008, 12/2004, 08/10/2004, Additional history exists HPV Vaccines Completed 06/15/2019, 03/24/2018 Hepatitis A Vaccines Completed 06/15/2019, 03/24/20 18 Meningococcal Vaccine Completed 07/21/2020, 018 HIV Screening Completed 03/28/2025 Hepatitis C Screening Completed 03/28/2025 RSV under 20 months Aged Out No longe r eligible based on patient's age to complete this topic Rotavirus Vaccines Aged Out No longer eligible based on patient's age to complete this topic Procedures Procedure Name Priority Date/Time Associated Diagnosis Comments ETHANOL Routine 06/23/2025 11:30 PM EDT MAGNESIUM Routine 06/23/2025 11:30 PM EDT COMPREHENSIVE METABOLIC PANEL Routine 06/23/2025 11:30 PM EDT POCT COVID-19 AG WOOD ID NOW Routine 06/04/2025 9:16 AM EDT COVID-19 POCT INFLUENZA A (ID NOW RAPID MOLECULAR) Routine 06/04/2025 9:16 AM EDT COVID-19 POCT INFLUENZA B (ID NOW RAPID MOLECULAR) Routine 06/04/2025 9:16 AM EDT COVID-19 CHLAMYDIA/TRICHOMONAS/ NEISSERIA GONORRHOEAE, PCR, URINE Routine 03/28/2025 11:38 AM EDT Penile discharge RPR (MONITOR) W/REFL TITER Routine 03/28/2025 11:38 AM EDT Penile discharge HEPATITIS C AB W/REFL TO HCV RNA, QN, PCR Routine 03/28/2025 11:38 AM EDT Penile discharge HEPATITIS B SURFACE ANTIGEN, EIA Routine 03/28/2025 11:38 AM EDT Penile discharge HIV 1/2 ANTIGEN/ANTIBODY, FOURTH GENERATION W/RFL Routine 03/28/2025 11:38 AM EDT Penile discharge LIPID PANEL, STANDARD Routine 03/28/2025 11:38 AM EDT Penile discharge POCT URINALYSIS DIPSTICK Routine 03/28/2025 11:07 AM EDT Penile discharge from Last 3 Months Results * Ethanol (06/23/2025 11:30 PM EDT) Pathologist [facility] ETHANOL (MG/DL) IN SER/PLAS 220 mg/dL [facility] Comment:Serum/plasma ethanol results are to be used formedical/treatment purposes only. 06/23/2025 11:3 0 PM EDT 06/23/2025 11:34 PM EDT Generic External Data Provider LAB BLOOD ORDERAB LES Final Result Performing Organization Address City/Va Hospital/ZIP Co de Phone Number [facility] [address] [place] [phone] * Magnesium (06/23/2025 11:30 PM EDT) [facility] Magnesium 2.2 1.6 - 2.6 mg/dL [facility] 06/23/2025 11:3 0 PM EDT 06/23/2025 11:34 PM EDT Generic External Data Provider LAB BLOOD ORDERAB LES Final Result Performing Organization Address [place] [facility] Hospital/[facility] Co de Phone Number [facility] [address] [place] [phone] * (ABNORMAL) Comprehensive Metabolic Panel (06/23/2025 11:30 PM EDT) Pathologist [facility] Sodium 146(H) 135 - 145 mmol/L [facility] Potassium 3.6 3.3 - 5.1 mmol/L [facility] Chloride 107 96 - 108 mmol/L [facility] Carbon Dioxide 29 22 - 29 mmol/L [facility] Anion Gap 14 12 - 20 [facility] Urea Nitrogen (BUN) 8(L) 9 - 16 mg/dL [facility] Creatinine, Serum 1.02 0.5 - 1.4 mg/dL [facility] Creatinine Clr Calc Pharmacy 104.6 [facility] Comment:eGFR (calculated fro m the MDRD study equation) and eCrCl(calculated from the Cockcroft-Gault equation) are based ondifferent parameters and may not yield comparable results.If eCrCl result is absurd, please check patient'sheight/weight. Estimated Glomerular Filt Rate >60 [facility] Comment:Chronic Kidney Disea se: Estimated GFR < 60 mL/min/1.28v4Lldxaq Kidney Disease: Estimated GFR < 15 mL/min/1.73m2 Glucose 111 60 - 115 mg/dL [facility] Calcium 9.6 8.4 - 10.2 mg/dL [facility] Bilirubin, Total 0.3 0.0 - 1.0 mg/dL [facility] Aspartate Amino Transferase 30 5 - 37 U/L [facility] Alanine Aminotransferase 24 0 - 40 U/L [facility] Total Protein 8.4(H) 6.5 - 8.0 g/dL [facility] Albumin Level 5.4(H) 3.5 - 5.0 g/dL [facility] Alkaline Phosphatase 67 39 - 117 U/L [facility] 06/23/2025 11:3 0 PM EDT 06/23/2025 11:34 PM EDT us Generic External Data Provider LAB BLOOD ORDERAB LES Final Result [facility] [address] [place] [address] [phone] * Influenza B (ID NOW Rapid Molecular) (06/04/2025 9:16 AM EDT) Influenza B Negative Negative, Indeterminate [facility] Swab 06/04/2025 9:16 AM EDT us Preston Newman MD POINT OF CARE TEST ENTER/EDIT O RDERABLES Final Result Performing Organization Address City/Va Hospital/ZIP Co de Phone Number [facility] [address] [place] [phone] * Influenza A (ID NOW Rapid Molecular) (06/04/2025 9:16 AM EDT) Influenza A Negative Negative, Indeterminate [facility] Swab 06/04/2025 9:16 AM EDT us Preston Newman MD POINT OF CARE TEST ENTER/EDIT O RDERABLES Final Result Performing Organization Address [place] [facility] Co de Phone Number [facility] [address] [place] [address] [phone] * (ABNORMAL) POCT COVID-19 Ag Wood ID NOW (06/04/2025 9:16 AM EDT) Coronavirus Antigen PCR Positive (A) Negative, Indeterminate, None Detected, Invalid, Specimen unsatisfactory for evaluation, Weakly Positive, 2+ Swab 06/04/2025 9:16 AM EDT us Preston Newman MD POINT OF CARE TEST ENTER/EDIT O RDERABLES Final Result * (ABNORMAL) Chlamydia/N. Gonorrhoeae, PCR, Urine (03/28/2025 11:38 AM EDT) CT PCR, Urine NOT DETECTED Not Detect. [facility] Comment:A not detected test result does not exclude the possibilityof infection because test results can be affected byimproper specimen collection, concurrent antibiotic therapy,or the number of organisms in the specimen which may bebelow the sensitivity of the test. As with many diagnostictests, results from the Xpert CT/NG assay should beinterpreted in conjunction with other laboratory andclinical data available to the clinician.The Xpert CT/NG assay should not be used for the evaluationof suspected sexual abuse or for other medico-legalindications. Additional testing is recommended in anycircumstance when false positive or false negative resultscould lead to adverse medical, social or psychologicalconsequences. NG PCR, Urine DETECTED(A) Not Detect. [facility] Comment:As with many diagnos tic tests, results from the Xpert CT/NGassay should be interpreted in conjunction with otherlaboratory and clinical data available to the clinician.The Xpert CT/NG assay should not be used for the evaluationof suspected sexual abuse or for other medico-legalindications. Additional testing is recommended in anycircumstance when false positive or false negative resultscould lead to adverse medical, social or psychologicalconsequences.These results must be reported by the ordering clinician orclinical facility to the [facility] required by state law. Urine (Urine, Random) 03/28/2025 11:38 AM EDT 03/28/2025 2:10 PM EDT us Preston Newman MD LAB URINE ORDERABLES Final Resu lt Performing Organization Address [place] [facility] Hospital/ZIP Co de Phone Number [facility] [address] [place] [phone] * Hepatitis C Antibody with Reflex to HCV, RNA, Quantitative, Real-Time PCR (03/28/2025 11:38 AM EDT) Hepatitis C Antibody Nonreactive Nonreactive [facility] Comment:Antibodies to HCV no t detected; does not exclude early acuteHCV infection. Blood Venous blood specimen / Unknown 03/28/2025 11:38 AM EDT 03/28/2025 2:19 PM EDT us Preston Newman MD LAB BLOOD ORDERABLES Final Resu lt Performing Organization Address City/Va Hospital/ZIP Co de Phone Number [facility] [address] [place] [phone] * Hepatitis B surface antigen, EIA (03/28/2025 11:38 AM EDT) Hepatitis B Surface Ag Negative Negative [facility] Blood Venous blood specimen / Unknown 03/28/2025 11:38 AM EDT 03/28/2025 2:19 PM EDT us Preston Newman MD LAB BLOOD ORDERABLES Final Resu lt Performing Organization Address [place] [facility] de Phone Number [facility] [address] [place] [phone] * RPR (Monitor) with Reflex to??Titer (03/28/2025 11:38 AM EDT) RPR (Monitor) w/Refl Titer NON-REACTI VE NON-REACT PAMELA [facility] Comment:THIS TEST WAS PERFOR MED AT:[facility] [place] [phone] ROBERTS MD Rapid Plasma Reagin Ab Titer TNP [facility] Blood Venous blood specimen / Unknown 03/28/2025 11:38 AM EDT 03/28/2025 2:19 PM EDT us Preston Newman MD LAB BLOOD ORDERABLES Final Resu lt Performing Organization Address [place] [facility] de Phone Number [facility] [address] [place] [phone] * HIV-1/2 Antigen and Antibodies, Fourth Generation, with Reflexes (03/28/2025 11:38 AM EDT) HIV AB/AG Nonreactive Nonreactive [facility] Comment:HIV-1 p24 Ag and/or HIV-1/HIV-2 Ab not detected.A test result that is nonreactive does not exclude thepossibility of exposure to or infection with HIV-1 and/orHIV-2. Nonreactive results in this assay for individualswith prior exposure to HIV-1 and/or HIV-2 may be due toantigen and antibody levels that are below the limit ofdetection of this assay.The [employer] HIV Ag/Ab Combo assay result andsupplemental assay results should be interpreted inconjunction with the patient's clinical presentation,history and other laboratory results. If the results areinconsistent with clinical evidence, additional testing issuggested to confirm the result. Blood Venous blood specimen / Unknown 03/28/2025 11:38 AM EDT 03/28/2025 2:19 PM EDT us Preston Newman MD LAB BLOOD ORDERABLES Final Resu lt [facility] [address] [place] [phone] * (ABNORMAL) Lipid Panel, Standard (03/28/2025 11:38 AM EDT) Triglycerides 87 <150 mg/dL [facility] Comment:Desirable Triglyceri de: less than 150 mg/dLBorderline High Triglyceride 150-199 mg/dLHigh Triglyceride: 200-499 mg/dLVery High Triglyceride: greater than or equal to 5OO mg/dL Cholesterol 188 <200 mg/dL [facility] Comment:Desirable Cholestero l: less than 200 mg/dLBorderline High Cholesterol: 200-239 mg/dLHigh Cholesterol: greater than 239 mg/dL LDL Cholesterol Calculated 109(H) <100 mg/dL [facility] Comment:Desirable LDL: less than 100 mg/dLNear Optimal/Above Optimal LDL: 110- 129 mg/dLBorderline High LDL: 130-159 mg/dLHigh LDL: 160-189 mg/dLVery High LDL: greater than or equal to 190 mg/dL HDL Cholesterol 62 >40 mg/dL [facility] Comment:Desirable HDL: great er than 40 mg/dL Note: This HDL assay may give artificially low results in patients with liver disease. Blood Venous blood specimen / Unknown 03/28/2025 11:38 AM EDT 03/28/2025 2:19 PM EDT us Preston Newman MD LAB BLOOD ORDERABLES Final Resu lt [facility] [address] [place] [phone] [phone] * POCT Urinalysis (03/28/2025 11:07 AM EDT) [...] Media Lot # [id number] Lot# Expiration Date [id number] Urine 03/28/2025 11:0 7 AM EDT Preston Newman MD POINT OF CARE TEST ENTER/EDIT O RDERABLES Final Result from Last 3 Months Insurance [facility]
[2025-06-24 00:46] LABS: Appearance Urine Clear; Glucose Urine UA Negative (Negative); PH 6.0 (5.0-9.0); Specific Gravity - Urine 1.010 (1.005-1.025); UMIC TRIGGER UACC YES
[2025-06-24 00:53] LABS: Cannabinoid Screen Urine POSITIVE (Not Detect)
[2025-06-24] MEDS: iohexoL 350 MG/ML 100 ML INFUS..BTL 85 ML IV (01:11)
[2025-06-24 01:23] VITALS: BP 138/80; PULSE 80; RESP 20; O2SAT 98
--- NOTE | 2025-06-24 02:54 | PC.NURSE ---
report given to [facility] ED RN
[2025-06-24 02:55] VITALS: BP 143/78; PULSE 78; RESP 20; TEMP 36.7; O2SAT 98
== END 2025-06-24 02:57 | disposition short-term general hospital (02) ==
PROVIDERS: Physician Assistant Medical; Emergency Provider Emergency Medicine
DX: S02.641A Fracture of ramus of right mandible, initial encounter for closed fracture (principal); S02.642A Fracture of ramus of left mandible, initial encounter for closed fracture; S01.81XA Laceration without foreign body of other part of head, initial encounter; S03.02XA Dislocation of jaw, left side, initial encounter; W10.9XXA Fall (on) (from) unspecified stairs and steps, initial encounter; Y93.9 Activity, unspecified; Y92.9 Unspecified place or not applicable; Y99.9 Unspecified external cause status; F10.129 Alcohol abuse with intoxication, unspecified; Y90.7 Blood alcohol level of 200-239 mg/100 ml
CPT/HCPCS: 36415; 70450; 70486; 71260; 72125; 74177; 80053; 80307; 81001; 83735; 85025; 96374; 96375; 99285; J1171; J2003; J2270; Q9967

== ENCOUNTER → 2025-06-24 | Outpatient (BNV) | payer MEDICAID, SELFPAY | PROVIDERS: Emergency Provider Emergency Medicine; Visit Provider Radiology Diagnostic Radiology | DX: R10.30 Lower abdominal pain, unspecified (principal); R07.9 Chest pain, unspecified; S02.642A Fracture of ramus of left mandible, initial encounter for closed fracture; S03.02XA Dislocation of jaw, left side, initial encounter; R51.9 Headache, unspecified | CPT/HCPCS: 70450; 70486; 71260; 72125; 74177 ==